=== PATIENT | female | born 1995 | race Caucasian/White ===

== ENCOUNTER → 2023-12-02 13:17 | Outpatient (REF) | payer OTHER, BC, SELFPAY | LOC: MRI 3T 13:17 | PROVIDERS: ATTENDING PHYSICIAN Orthopaedic Surgery Hand Surgery; FAMILY PHYSICIAN Nurse Practitioner Family | DX: M75.41 Impingement syndrome of right shoulder (principal) | CPT/HCPCS: 23350; 73040; 73222 ==